=== PATIENT | female | born 2000 | race American Indian/Alaskan Native ===

== ENCOUNTER 2022-03-26 18:50 | Emergency (ER) | payer SELFPAY ==
[2022-03-26] MEDS ORDERED: MIDAZOLAM 2 MG/2 ML INJ ONE (19:09)
[2022-03-26] MEDS ORDERED: MIDAZOLAM 2 MG/2 ML INJ IV NR (20:00)
[2022-03-26] MEDS ORDERED: levETIRAcetam 1000 MG/NS 0.75% 1,000 MG/100 ML BAG IV ONE (20:08)
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
[2022-03-26] MEDS ORDERED: ONDANSETRON 4 MG ODT TAB PO ONE (21:25)
[2022-03-26 21:58] VITALS: BP 126/88
== END 2022-03-26 21:58 ==
LOC: ED 18:50
DX: R56.9 Unspecified convulsions (principal); Y08.89XA Assault by other specified means, initial encounter; Y93.89 Activity, other specified; Y92.89 Other specified places as the place of occurrence of the external cause; Y99.8 Other external cause status
CPT/HCPCS: 96374; 99283; J3490; J2250; Q0162